=== PATIENT | male | born 1995 | race Caucasian/White ===

== ENCOUNTER 2020-05-28 22:46 | Emergency (ER) | payer SELFPAY ==
[~2020-05-28] VITALS: Ht 173 cm; Wt 95.2 kg
--- NOTE | 2020-05-28 23:22 | ED Cough/URI ---
General Chief Complaint: Cough/Cold/Flu Symptoms Stated Complaint: FEVER / MUSCLE ACHE / SORE THROAT / SOB Source: patient History of Present Illness Date Seen by Provider: May 28, 2020 Time Seen by Provider: 23:19 Initial Comments PT ARRIVES VIA POV FROM HOME C/O SUBJECTIVE FEVER C/O SORE THROAT C/O BODY ACHES C/O SHORTNESS OF BREATH C/O NON-PRODUCTIVE COUGH C/O FATIGUE C/O HEADACHE C/O DECREASED TASTE AND SMELL, BUT NOT COMPLETELY LOST C/O NASAL CONGESTION NO GI SYMPTOMS STATES SYMPTOMS BEGAN 2 DAYS AGO 05/26/20--SUBJECTIVE FEVER, BODY ACHES, FATIGUE. YESTERDAY HE HAD INCREASED FATIGUE--"SLEPT ALL DAY" , SORE THROAT, COUGH, HEADACHE, DECREASED TASTE AND SMELL AND NASAL CONGESTION. TODAY HIS CHEST BEGAN "FEELING FULL" WENT TO [facility] TODAY AND HAD RAPID COVID TEST AND WAS NEGATIVE. WAS NOT TESTED FOR ANYTHING ELSE. GIVEN RX FOR TESSALON PERLES--STATES HE IS STILL COUGHING. HAS NOT TAKEN TYLENOL/MOTRIN OR ANYTHING ELSE FOR HIS SYMPTOMS NO KNOWN SICK CONTACTS--HAS 2 ROOM MATES, AND THEY ARE NOT ILL NO CHRONIC MEDICAL ILLNESSES PCP: [facility] WAS PSU STUDENT BUT JUST GRADUATED IN MARCH, IS NOT WORKING ANYWHERE Allergies and Home Medications Allergies Coded Allergies: No Known Drug Allergies (Unverified , 05/28/20) Home Medications Promethazine/Dextromethorphan 473 Ml Syrup, 5 ML PO Q4H Prescribed by: YE REAGAN on 05/28/20 3079 Patient Home Medication List Home Medication List Reviewed: Yes Review of Systems Review of Systems Constitutional: see HPI, fever, malaise EENTM: see HPI, nose congestion, throat pain Respiratory: see HPI, cough, short of breath Cardiovascular: no symptoms reported Gastrointestinal: no symptoms reported; No abdominal pain, No diarrhea, No nausea, No vomiting Genitourinary: see HPI Musculoskeletal: see HPI (BODY ACHES) Skin: no symptoms reported Psychiatric/Neurological: See HPI, Headache Hematologic/Lymphatic: No Symptoms Reported Immunological/Allergic: no symptoms reported Past Zmkmrpi-Mtamda-Embycc Hx Past Med/Social Hx: Reviewed and Corrections made Patient Social History Alcohol Use: Denies Use Drug of Choice: DENIES Smoking Status: Never a Smoker Past Medical History Surgeries: No Respiratory: No Cardiac: No Neurological: No Genitourinary: No Gastrointestinal: No Musculoskeletal: No Endocrine: No HEENT: No Cancer: No Psychosocial: No Integumentary: No Blood Disorders: No Physical Exam Vital Signs - First Documented 05/28/20 23:16 Temp 36.9 Pulse 103 Resp 18 B/P (MAP) 120/60 (80) Pulse Ox 98 O2 Delivery Room Air Capillary Refill : Height: '" Weight: lbs. oz. kg; BMI Method: General Appearance: WD/WN, no apparent distress, other (DOES NOT APPEAR ILL OR TO BE IN ANY DISCOMFORT OR DISTRESS. 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, no motor/sensory deficits, alert, normal mood/affect, oriented x 3 Skin: normal color (NORMAL FOR ETHNICITY), warm/dry; No rash Progress/Results/Core Measures Suspected Sepsis SIRS Temperature: Pulse: Respiratory Rate: Blood Pressure / Mean: Results/Orders Lab Results Laboratory Tests Test 05/28/20 23:20 Range/Units Coronavirus 2018 (GUSTAVO) Negative Negative Group A Streptococcus Screen NEGATIVE NEGATIVE Micro Results Microbiology 05/28/20 Influenza Types A,B Antigen (JOSÉ) - Final, Complete My Orders Orders - YE REAGAN DO Rapid Strep A Screen (05/28/20 23:19) Influenza A And B Antigens (05/28/20 23:19) Coronavirus Sars-Cov-2 So 2018 (05/28/20 23:19) Covid 19 Inhouse Test (05/28/20 23:19) Vital Signs/I&O 05/28/20 05/28/20 05/29/20 23:16 23:16 00:00 Temp 36.9 36.9 Pulse 103 100 Resp 18 18 B/P (MAP) 120/60 (80) 120/62 (80) Pulse Ox 98 98 O2 Delivery Room Air Room Air Room Air Capillary Refill : Progress Note : Progress Note PLACED IN ISOLATION ROOM PPE WORN AT ALL TIMES COVID-19 TESTING PERFORMED PT ADVISED OF NEED FOR QUARANTINE NO COUGH, NO DYSPNEA, NO HYPOXIA AT ANY TIME Departure Impression Primary Impression: Person under investigation for COVID-19 Disposition: 01 HOME, SELF-CARE Condition: Stable Departure-Patient Inst. Referrals: [facility] Patient Instructions: Coronavirus Disease 2019 (COVID-19) Overview, Preventing the Spread of an Infectious Disease Add. Discharge Instructions: LOTS OF CLEAR LIQUIDS-WATER, BROTH, JELLO, GATORADE TAKE TYLENOL 1 GRAM AND MOTRIN 800 MG 4 TIMES A DAY NEEDED FOR PAIN OR FEVER CONTINUE TESSALON NEEDED FOR COUGH FOLLOW UP WITH [facility] IN 3-4 DAYS IF NO BETTER, RETURN TO ER IF WORSE All discharge instructions reviewed with patient and/or family. Voiced understanding. Scripts Promethazine/Dextromethorphan (Promethazine-Dm Syrup) 473 Ml Syrup 5 ML PO Q4H for Cough, #200 ML Prov: YE REAGAN DO 05/28/20 YE REAGAN DO May 28, 2020 23:22
[2020-05-28] MEDS ORDERED: D-ME473S11 PO (23:56)
[2020-05-29] VITALS: BP 120/62
== END 2020-05-29 00:04 | disposition home or self-care (01) ==
LOC: ER 22:49
DX: Z20.822 Contact with and (suspected) exposure to COVID-19 (principal)
CPT/HCPCS: 87430; 87804; 99282; U0002; 87635